=== PATIENT | male | born 1955 | race Caucasian/White ===

== ENCOUNTER → 2017-02-26 | Outpatient (CLI) | payer OTHER | LOC: FIMAGING 15:44 | PROVIDERS: ATTEND Family Medicine | DX: S22.41XA Multiple fractures of ribs, right side, initial encounter for closed fracture (principal) ==

== ENCOUNTER → 2017-06-17 | Outpatient (CLI) | payer OTHER ==
[~2017-06-17] MED LIST: IOPAMIDOL (ISOVUE 370) 100 ML BTL IV ONE
== END ==
LOC: FIMAGING 10:26
PROVIDERS: ATTEND Psychiatry & Neurology Neurology
DX: I63.9 Cerebral infarction, unspecified (principal); G25.3 Myoclonus
CPT/HCPCS: Q9967

== ENCOUNTER → 2017-06-30 | Outpatient (CLI) | payer OTHER ==
[~2017-06-30] MED LIST changes: -IOPAMIDOL (ISOVUE 370) 100 ML BTL IV ONE; +LIDOCAINE 1% 300 MG/30 ML SDV ONE
[2017-06-30 09:13] LABS: INR 0.94 (0.83-1.16); PROTIME(PATIENT) 12.8 SEC (12.0-15.0)
== END ==
LOC: FIMAGING 08:37
PROVIDERS: ATTEND Psychiatry & Neurology Neurology
PROC: 009U3ZX Drainage of Spinal Canal, Percutaneous Approach, Diagnostic (ICD-10-PCS; principal; 2017-06-30)
DX: R93.0 Abnormal findings on diagnostic imaging of skull and head, not elsewhere classified (principal); G25.3 Myoclonus
CPT/HCPCS: 82784-90; 83916-90

== ENCOUNTER 2017-07-29 10:17 | Day surgery (SDC) | payer OTHER ==
[2017-07-29] MEDS ORDERED: LIDOCAINE 1% 300 MG/30 ML SDV SC ONE (10:39)
--- NOTE | 2017-07-29 10:53 | PDHPUP ---
History & Physical Update H&P update statement: This history and physical update is based on an assessment of the patient which was completed after admission or registration (within 24 hours), but prior to the surgery/procedure. H&P update: H&P reviewed & patient examined, no change in patient's condition since H&P completed
--- NOTE | 2017-07-29 11:30 | CPIP ---
[f rep st] INVASIVE CARDIAC PROCEDURE DATE OF PROCEDURE: 07/29/2017 INDICATIONS: Mr. Mahoney is 62 years of old. He has a history of CVA. His workup thus far has indica kasey that his stroke is likely cryptogenic in nature. He is referred for implantation of a Medtronic LINQ to rule out atrial arrhythmias that might have contributed to his stroke. PROCEDURE: Implantation of a Medtronic LINQ. TECHNIQUE: Following informed consent, the patient was brought to the [facility] in a fasting state. The 4 th intercostal space was identified by landmarks and infiltrated with 2% lidocaine. A 1 cm incision was made with the #15 blade. The Medtronic LINQ then was injected underneath the skin and the wound closed with 2 cristy. Manual pressure was held. COMPLICATIONS: None. DISPOSITION: The patient will be recovered here in the [facility]. He will be discharged home later today and follow up in the office. /[id number]/MODL
== END 2017-07-29 11:36 | disposition home or self-care (01) ==
LOC: FCATH 10:17
PROVIDERS: ATTEND Internal Medicine Cardiovascular Disease
PROC: 0JH63PZ Insertion of Cardiac Rhythm Related Device into Chest Subcutaneous Tissue and Fascia, Percutaneous Approach (ICD-10-PCS; principal; 2017-07-29)
DX: Z13.6 Encounter for screening for cardiovascular disorders (principal); Z86.73 Personal history of transient ischemic attack (TIA), and cerebral infarction without residual deficits; E78.5 Hyperlipidemia, unspecified
CPT/HCPCS: C1764

== ENCOUNTER → 2017-08-06 | Outpatient (CLI) | payer OTHER | LOC: FIMAGING 16:08 | PROVIDERS: ATTEND Family Medicine | DX: M17.0 Bilateral primary osteoarthritis of knee (principal) ==

== ENCOUNTER → 2017-09-01 | Outpatient (CLI) | payer OTHER ==
[2017-09-01 10:05] LABS: INR 0.95 (0.83-1.16); PROTIME(PATIENT) 12.9 SEC (12.0-15.0)
--- NOTE | 2017-09-01 11:48 | PDRADPN ---
Radiology Procedure Note Date of Procedure: 09/01/17 Radiologist: Tomasz Munoz Anesthesia: Local (Specify) Pre-op Diagnosis: abnormal neuro imaging Post-op Diagnosis: same Indication: r/o broad differential Procedure: image guided lp Finding(s): 20G entry at L3/4, clear fluid Inf/Abcess present in the surg proc area at time of surgery?: No Complications: no
== END ==
LOC: FIMAGING 08:58
PROVIDERS: ATTEND Psychiatry & Neurology Neurology
PROC: 009U3ZX Drainage of Spinal Canal, Percutaneous Approach, Diagnostic (ICD-10-PCS; principal; 2017-09-01)
DX: R93.8 Abnormal findings on diagnostic imaging of other specified body structures (principal)
CPT/HCPCS: 82784-90; 83916-90; 85060-90; 88184-90; 88185-91

== ENCOUNTER 2017-09-21 16:28 | Emergency (ER) | payer OTHER ==
--- NOTE | 2017-09-21 17:06 | EDPHY ---
H & P Stated Complaint: Woke up this am with L arm and L leg numbness Time Seen by Provider: 09/21/17 16:50 HPI/ROS: CHIEF COMPLAINT: Left-sided numbness HISTORY OF PRESENT ILLNESS: 62-year-old male with multiple lacunar infarcts of unclear etiology presents with left-sided numbness. 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 He had an MRI that demonstrated multiple lacunar infarcts. Extensive evaluation has been unremarkable. He was seen in the office today by Dr. Harley for follow-up and mentioned that he had left sided numbness. He was sent here for MRI of the brain and for admission. Concern for vasculitis causing lacunar infarcts. He is scheduled for an angiogram next week with Dr. Rob Bradshaw. REVIEW OF SYSTEMS: complete 10 point ROS negative except at noted in the HPI - Personal History Current Tetanus/Diphtheria Vaccine: No Current Tetanus Diphtheria and Acellular Pertussis (TDAP): No - Medical/Surgical History Hx Asthma: No Hx Chronic Respiratory Disease: No Hx Diabetes: No Hx Cardiac Disease: No Hx Renal Disease: No Hx Cirrhosis: No Hx Alcoholism: No Hx HIV/AIDS: No Hx Splenectomy or Spleen Trauma: No Other PMH: CVA 2010 - Social History Smoking Status: Never smoked - Physical Exam Exam: General Appearance: Alert, pleasant Eyes: Pupils equal and round, no conjunctival pallor or injection ENT, Mouth: Mucous membranes moist Neck: Normal inspection Respiratory: Lungs are clear to auscultation Cardiovascular: Regular rate and rhythm Gastrointestinal: Abdomen is soft and nontender Neurological: A&O, cranial nerves 2-12 intact, motor 5/5, decreased sensation to light touch left lower extremity, starting at the knee and extending distally to the foot; decreased sensation to light touch left upper extremity starting at the elbow and extending to the fingers Skin: Warm and dry Extremities: Normal inspection Psychiatric: Mood and affect normal Constitutional: Initial Vital Signs Temperature (C) 36.5 C 09/21/17 16:32 Heart Rate 75 09/21/17 16:32 Respiratory Rate 16 09/21/17 16:32 Blood Pressure 130/80 H 09/21/17 16:32 O2 Sat (%) 97 09/21/17 16:32 O2 Delivery Mode Room Air Allergies/Adverse Reactions: No Known Allergies Allergy (Unverified 08/13/17 13:17) Home Medications: Medication Instructions Recorded SIMVASTATIN 10 mg PO HS 08/03/09 Aspirin 81mg (*) 1 tab PO DAILY 06/22/17 Medical Decision Making - Diagnostics Imaging Results: Imaging Impressions Brain MRI 09/21/17 17:01 Impression: 1. Stable moderate cerebral atrophy. 2. Stable moderate nonspecific hyperintense T2/FLAIR signal abnormalities in the white matter of bilateral cerebral hemispheres. There is also stable abnormal signal right anterior brain stem just below the michelle. Differential diagnosis includes microvascular ischemic disease, post-infectious/post- inflammatory sequela, atypical demyelinating disease, or migraine-related sequela. 3. No acute infarct, hemorrhage, hydrocephalus, mass effect, or herniation. If symptoms worsen, additional imaging may be necessary. Findings discussed with the medical director with Anna Begum M.D. at 20: 09 hour, 09/21/2017. ED Course/Re-evaluation: This patient presents with left sided paresthesias, concerning for lacunar infarct. MRI of the brain ordered. This patient is not a tPA candidate. He is outside the window for tPA. MRI results discussed the patient and his . MRI stable, no evidence of acute infarct. Dr. Harley was consulted and recommends that I discharge the patient home, given that there are no acute findings on MRI. She will follow up with the patient in the office tomorrow. Warning signs discussed with the patient. He will return for worsening symptoms or any concerns. Differential Diagnosis: includes though not limited by CVA, TIA, electrolyte abnormality, hypoglycemia, peripheral neuropathy - Data Points Laboratory Results: Laboratory Results 09/21/17 16:55 09/21/17 16:55 09/21/17 09/21/17 16:55 16:55 WBC 7.52 10^3/uL 10^3/uL (3.80-9.50) RBC 4.50 10^6/uL 10^6/uL (4.40-6.38) Hgb 14.6 g/dL g/dL (13.7-17.5) Hct 42.7 % % (40.0-51.0) MCV 94.9 fL fL (81.5-99.8) MCH 32.4 pg pg (27.9-34.1) MCHC 34.2 g/dL g/dL (32.4-36.7) RDW 12.3 % % (11.5-15.2) Plt Count 189 10^3/uL 10^3/uL (150-400) MPV 10.6 fL fL (8.7-11.7) Neut % (Auto) 62.5 % % (39.3-74.2) Lymph % (Auto) 25.0 % % (15.0-45.0) Osborne % (Auto) 8.6 % % (4.5-13.0) Eos % (Auto) 3.1 % % (0.6-7.6) Baso % (Auto) 0.5 % % (0.3-1.7) Nucleat RBC Rel Count 0.0 % % (0.0-0.2) Absolute Neuts (auto) 4.70 10^3/uL 10^3/uL (1.70-6.50) Absolute Lymphs (auto) 1.88 10^3/uL 10^3/uL (1.00-3.00) Absolute Monos (auto) 0.65 10^3/uL 10^3/uL (0.30-0.80) Absolute Eos (auto) 0.23 10^3/uL 10^3/uL (0.03-0.40) Absolute Basos (auto) 0.04 10^3/uL 10^3/uL (0.02-0.10) Absolute Nucleated RBC 0.00 10^3/uL 10^3/uL (0-0.01) Immature Gran % 0.3 % % (0.0-1.1) Immature Gran # 0.02 10^3/uL 10^3/uL (0.00-0.10) Sodium 141 mEq/L mEq/L (135-145) Potassium 3.9 mEq/L mEq/L (3.5-5.2) Chloride 104 mEq/L mEq/L (97-110) Carbon Dioxide 26 mEq/l mEq/l (22-31) Anion Gap 11 mEq/L mEq/L (8-16) BUN 17 mg/dL mg/dL (7-23) Creatinine 1.0 mg/dL mg/dL (0.7-1.3) Estimated GFR > 60 Glucose 90 mg/dL mg/dL (70-100) Calcium 8.7 mg/dL mg/dL (8.5-10.4) Departure - Departure Disposition: Home, Routine, Self-Care Clinical Impression: Paresthesia Condition: Good Instructions: Paresthesia (ED) Additional Instructions: Return for increasing numbness, weakness or any concerns. Follow-up with Dr. Harley tomorrow. Referrals: Belia Harley DO [Primary Care Provider] - As per Instructions
--- NOTE | 2017-09-21 17:10 | CPEKG ---
Heart Rate: 78 RR Interval: 769 P-R Interval: 176 QRSD Interval: 82 QT Interval: 388 QTC Interval: 442 P Fletcher: 34 QRS Fletcher: 48 T Wave Fletcher: 42 EKG Severity - NORMAL ECG - EKG Impression: SINUS RHYTHM Electronically Signed By: Anna Begum 21-Sep-2017 18:47:24
[2017-09-21 17:35] LABS: PLATELET COUNT 189 10^3/uL (150-400)
[2017-09-21 20:33] VITALS: BP 137/118
== END 2017-09-21 20:33 | disposition home or self-care (01) ==
DX: R20.2 Paresthesia of skin (principal); Z79.82 Long term (current) use of aspirin; Z86.73 Personal history of transient ischemic attack (TIA), and cerebral infarction without residual deficits

== ENCOUNTER → 2018-03-16 | Outpatient (CLI) | payer OTHER | LOC: FIMAGING 11:43 | PROVIDERS: ATTEND Family Medicine | DX: M47.896 Other spondylosis, lumbar region (principal) ==